=== PATIENT | female | born 1985 | race Caucasian/White ===

== ENCOUNTER 2016-06-12 18:21 | Inpatient (IN) | payer OTHER ==
[~2016-06-12] VITALS: Ht 165.1 cm; Wt 84.9 kg
[2016-06-12] MEDS ORDERED: PRENAT PO (21:50)
[2016-06-12 22:00] VITALS: TEMP 98
[2016-06-12 22:35] LABS: ADD SCAN DIFF NO
[2016-06-12 22:38] LABS: ABNORMAL IP MESSAGE 1; HEMATOCRIT 28.3 % (37.0-47.0); MEAN CORPUSCULAR HEMOGLOBIN 11.6 pg (29.0-33.0); MEAN CORPUSCULAR VOLUME 48.2 fl (82.0-101.0); PLATELET COUNT 485 10^3/UL (140-415); RED BLOOD COUNT 5.87 10^6/ul (4.20-5.40); RED CELL DISTRIBUTION WIDTH 28.5 % (11.5-14.5); WHITE BLOOD COUNT 12.1 10^3/ul (4.8-10.8)
[2016-06-12 22:51] LABS: HEMOGLOBIN 6.8 g/dl (12.0-16.0)
[2016-06-12 23:03] LABS: ALBUMIN 4.4 g/dl (3.3-4.9)
[2016-06-12 23:04] LABS: POTASSIUM 3.6 mmol/L (3.5-5.1)
[2016-06-12 23:06] LABS: ALBUMIN/GLOBULIN RATIO 1.22; BILIRUBIN,INDIRECT 0.5 mg/dl (0-1.1); BILIRUBIN,TOTAL 0.5 mg/dl (0.2-1.3); CREATININE 0.58 mg/dl (0.44-1.00)
[2016-06-12 23:07] LABS: CALCIUM 9.4 mg/dl (8.4-10.2)
--- NOTE | 2016-06-12 23:27 | ERA ---
ER Documentation Chief Complaint Date/Time DATE: 06/12/16 TIME: 23:26 Chief Complaint sent by pmd for lowhgb-6.5, 4 wks , denies vag bleeding HPI This is a 30-year-old female sent in by PMD for low hemoglobin of 6.5. Patient is 45 weeks . Denies vaginal bleeding. Denies any abdominal pain. Denies any other current complaints. Denies weakness or palpitations. ROS All systems reviewed and are negative except as per history of present illness. Medications Home Meds Reported Medications Multivit/Min/Fol Ac/Iron/Pren* ( S*) 1 Tab Tab, 1 TAB PO DAILY, TAB 06/12/16 Allergies Allergies: Coded Allergies: Penicillins (Verified Allergy, Unknown, 06/12/16) codeine (Verified Allergy, Unknown, 06/12/16) PMhx/Soc Medical and Surgical Hx: pt denies Medical Hx History of Surgery: No Anesthesia Reaction: No Hx Neurological Disorder: No Hx Cardiac Disorders: No Hx Psychiatric Problems: No Hx Miscellaneous Medical Probl: No Hx Alcohol Use: No Hx Substance Use: No Hx Tobacco Use: No Smoking Status: Current every day smoker Physical Exam Vitals Vital Signs Date Time Temp Pulse Resp B/P Pulse Ox O2 Delivery O2 Flow Rate FiO2 06/12/16 18:53 98.4 86 20 116/73 100 06/12/16 18:51 98.4 90 20 116/73 100 Physical Exam Const: [] Head: Atraumatic Eyes: Normal Conjunctiva ENT: Normal External Ears, Nose and Mouth. Neck: Full range of motion..~ No meningismus. Resp: Clear to auscultation bilaterally Cardio: Regular rate and rhythm, no murmurs Abd: Soft, non tender, non distended. Normal bowel sounds Skin: No petechiae or rashes Back: No midline or flank tenderness Ext: No cyanosis, or edema Neur: Awake and alert Psych: Normal Mood and Affect Result Diagram: 06/12/162224 Results 24 hrs Laboratory Tests Test 06/12/16 22:25 White Blood Count 12.110^3/ul Red Blood Count 5.8710^6/ul Hemoglobin 6.8g/dl Hematocrit 28.3% Mean Corpuscular Volume 48.2fl Mean Corpuscular Hemoglobin 11.6pg Mean Corpuscular Hemoglobin Concent 24.0g/dl Red Cell Distribution Width 28.5% Platelet Count 18448^3/UL Mean Platelet Volume fl Procedures/MDM Medical decision-makin-year-old female comes in essentially for iron deficiency anemia. Patient to be admitted to hospitalist. Dr. Schmidt consulted from OB. Departure Diagnosis: Primary Impression: Anemia Qualified Code: D50.9 - Iron deficiency anemia, unspecified iron deficiency anemia type Condition: Serious DAMON CHRIS Jun 12, 2016 23:27
[2016-06-13] VITALS: BP 110/69; PULSE 82; RESP 20
[2016-06-13 00:04] LABS: ADD UMIC NO; URINE BILIRUBIN (Dip) NEGATIVE (NEGATIVE); URINE BLOOD (Dip) NEGATIVE (NEGATIVE); URINE COLOR LT. YELLOW (YELLOW); URINE GLUCOSE (Dip) NEGATIVE (NEGATIVE); URINE KETONES (Dip) NEGATIVE (NEGATIVE); URINE LEUKOCYTE ESTERASE (Dip) NEGATIVE (NEGATIVE); URINE NITRITE (Dip) NEGATIVE (NEGATIVE); URINE TOTAL PROTEIN (Dip) NEGATIVE (NEGATIVE); URINE UROBILINOGEN (Dip) 0.2 E.U./dL (0.1-1.0)
--- NOTE | 2016-06-13 00:34 | RADRPT ---
PROCEDURE: ULTRASOUND OBSTETRICAL CLINICAL INDICATION: 30-year-old female with vaginal bleeding. TECHNIQUE: Multiple sonographic images of the pelvis were obtained. The images were reviewed on a PACS workstation. COMPARISON: None. FINDINGS: There is a single intrauterine gestation. The mean sac diameter is 0.98 cm. There is a gestational sac present. There is a pole present with a crown-rump length of 0.34 cm. This yields an gina mated gestational age of 5 weeks and 6 days. The estimated date of delivery is February 06, 2017. T here is no evidence for cardiac activity. There is no evidence for free fluid. The right ovary has a normal echotexture and measures 3.4 x 2.6 x 2.9 cm. The left ovary has a normal echotexture and me asures 3.0 x 1.9 x 2.3 cm. There is normal flow to the ovaries bilaterally. No adnexal masses are n oted. IMPRESSION: Single early intrauterine gestation of approximately 5 weeks 6 days without cardiac activity suspici ous for early failed . Clinical correlation and follow-up ultrasound at 1-2 weeks is pranay garnett. .David Cali MD, Date Time Electronically viewed and signed by .David Cali MD, on 06/13/2016 00:34 .M/
[2016-06-13 00:54] VITALS: Ht 165.1 cm; Wt 84.9 kg
[2016-06-13] MEDS ORDERED: ONDANSETRON 4 MG INJ IV PRN (01:30)
[2016-06-13 01:50] LABS: IRON 12 ug/dl (35-150)
[2016-06-13 01:59] LABS: TOTAL IRON BINDING CAPACITY 465 ug/dl (241-421)
[2016-06-13 02:15] LABS: EOSINOPHILS # 0.1 10^3/ul (0.0-0.5); LYMPHOCYTES # 3.1 10^3/ul (0.8-2.9); MONOCYTE # 0.7 10^3/ul (0.3-0.9); NEUTROPHIL # 8.1 10^3/ul (1.6-7.5); PLATELET ESTIMATE PLT APPEAR INCREASED
[2016-06-13 08:14] VITALS: BP 103/59; RESP 16
[2016-06-13 08:15] VITALS: BP_SYST 103; BP_SYST 115; BP_DIAS 54; BP_DIAS 59; RESP 16
--- NOTE | 2016-06-13 08:50 | HP ---
DATE OF ADMISSION: 06/12/2016 TIME SEEN: 2330 CHIEF COMPLAINT: Anemia and generalized weakness. HISTORY OF PRESENT ILLNESS: The patient is a 30-year-old female who is 6 weeks , with a his tory of anemia who was sent for anemia. Laboratory results from outside showed a decreased hemoglob in and was sent here for evaluation. She denied any vaginal bleeding, dark stool, bright red blood per rectum, or hematemesis. She stated that she was actually diagnosed with iron deficiency anemia when she was a teenager, she used to take iron supplement inconsistently. She stated her hemoglobin has been as low as 7, but she stated she has never received any blood transfusion. When she presen jennifer here to the ER today, her hemoglobin was 6.8, MCV was 48. Currently, she is receiving a blood t ransfusion. I actually did check her ferritin and the iron profile prior to blood transfusion which showed severe iron deficiency. While the patient was in the ER an obstetric ultrasound was done wh ich showed a single early intrauterine gestation of approximately 5 weeks 6 days without cardiac act ivity, suspicious for the failed . Dr. Schmidt from SERVICE TEAM LEADER was consulted by the ER physici an. REVIEW OF SYSTEMS: A 12-point review was performed, negative except as mentioned in the HPI. PAST MEDICAL HISTORY: As per HPI. PAST SURGICAL HISTORY: x1. SOCIAL HISTORY: Denied a history of tobacco, alcohol, or illicit drug use. ALLERGIES 1. PENICILLIN. 2. CODEINE. HOME MEDICATIONS: Multivitamins including and iron and folate. PHYSICAL EXAMINATION: VITAL SIGNS: Stable. GENERAL: The patient initially was sleepy, but arousable and answering questions appropriately, but was sleepy throughout history taking. HEENT: No obvious head deformity. Pupils are reactive to light. Extraocular muscles intact. CARDIOVASCULAR: Regular rate and rhythm. No extra sounds. LUNGS: Clear. ABDOMEN: Soft, nontender, normoactive bowel sounds. EXTREMITIES: No edema. NEUROLOGIC: There are no focal deficits. LABORATORY: Hemoglobin 6.8 with MCV of 48 and RDW of 28.5. WBC 12.1. Platelet count 485. INR is 12. TIBC 465, percent saturation 3, and ferritin 4.2. IMAGING: Obstetric ultrasound shows a single early intrauterine gestation of approximately 5 weeks and 6 days without cardiac activity, suspicious for early failed . IMPRESSION: 1. Severe iron deficiency anemia. 2. Generalized weakness/fatigue, secondary to above. 3. Suspicious early failed 4. Leukocytosis, likely stress-induced. PLAN: We are going to continue blood transfusion. This is going to be continued with her multivita min, iron supplement, and will give her an extra iron. Her suspected failed is going to b e addressed by SERVICE TEAM LEADER. Dr. Schmidt was consulted by the ER physician. Further workup and management per clinical course. Dictated By: DAMON TEAGUE/NTS Conf#: [id number] DID#: [id number]
[2016-06-13] MEDS: MULTIVIT/MIN/FOLATE/IRON/PREN TAB PO SCH (09:56)
[2016-06-13] MEDS ORDERED: HYDROCODONE/APAP (5/325) TAB PO PRN (10:00)
[2016-06-13] MEDS ORDERED: ACETAMINOPHEN 325 MG TAB PO PRN (10:00)
[2016-06-13] MEDS: SOD FERRIC GLUC COMPLX 125 MG in SOD CHLORIDE 0.9% 100 ML IVPB SCH ×2 (11:00→14:45)
--- NOTE | 2016-06-13 11:18 | PN ---
DATE: 06/13/2016 SUBJECTIVE: The patient presently getting blood transfusion. Denies any lower vaginal bleeding. OBJECTIVE VITAL SIGNS: Stable. GENERAL: Patient is sitting up in bed, no acute distress, answering questions. HEENT: Pupils equal, round, react to light. Extraocular muscles intact. NECK: Supple, no thyromegaly. LUNGS: Clear to auscultation bilaterally. CARDIOVASCULAR: S1, S2 heard. No rubs or gallops. ABDOMEN: Soft, nontender, nondistended. Normal bowel sounds. No rebound or guarding. MUSCULOSKELETAL: No lower extremity edema bilaterally. NEUROLOGIC: No focal deficits. LABORATORY DATA: Again, the iron levels are low at 3. TIBC is high at 465, percent saturation is l ow at 3. Iron levels were 12. Comprehensive metabolic panel is normal. CBC shows WBC 12.1 and a h emoglobin of 6.8. IMAGING: Again the obstetric ultrasound did show single early intrauterine gestation of approximate ly 5 weeks x 6 days. No cardiac activity. Unfortunately, suspicious for early failed . ASSESSMENT AND PLAN: A 30-year-old female coming in with severe anemia and generalized weakness. 1. Weakness secondary to severe anemia. She has got signs of microcytic anemia. Continue blood tra nsfusions. Will order for IV iron as well. Follow up CBC in the morning. 2. Suspicious early failed . This is based on the obstetric ultrasound results. Again oralia l follow up CUT OFF SAW OPERATOR PIPE BLANKS recommendations. The patient may need a follow up ultrasound, follow up their re commendations. 3. Leukocytosis, likely stress-induced. No signs of any fevers. Continue to monitor for now. 4. Gastrointestinal prophylaxis, PPI. 5. Deep venous thrombosis prophylaxis, SCDs. Dictated By: ALAN PRICE Conf#: [id number] DID#: [id number]
[2016-06-13 15:49] LABS: HEMATOCRIT 30.4 % (37.0-47.0); HEMOGLOBIN 8.2 g/dl (12.0-16.0)
--- NOTE | 2016-06-13 17:17 | CONS ---
Date/Time of Note Date/Time of Note DATE: 06/13/16 TIME: 17:02 Assessment/Plan Assessment/Plan Chief Complaint/Hosp Course 1. of 5 weeks and 1 day by LMP consistent with ultrasound in the hospital today Early IUP. Cardiac activity not yet visualized. No evidence of miscarriage or failed at this point Patient was reassured 2. Anemia, iron deficiency based on labs. Patient also reports tested positive for thalassemia. Hemoglobin evaluation ordered. Patient currently undergoing blood transfusion. She is hemodynamically stable. Follow-up and management of anemia by primary care team I discussed with the patient ultrasound finding consistent with early IUP. She was advised to have a follow-up after discharge from the hospital within 1-2 weeks with repeat ultrasound For evaluation for cardiac activity. SAB precaution was given. At this time patient will be signed off. Please reconsult if there is any other question or concern. Problems: Consultation Date/Type/Reason Admit Date/Time Jun 12, 2016 at 23:45 Date of Consultation: Jun 13, 2016 Type of Consultation: DEBONE SUPERVISOR, OB Reason for Consultation 06/13/2016 Hx of Present Illness I was consulted to see this 30-year-old pleasant female who was sent from her primary care office after she had a visit today to emergency room due to severe anemia for blood transfusion. Per patient she had missed cycle and for that reason she went to her primary care office and was noted to be . Patient reports has history of anemia. Patient LMP is May 08, 2016. is currently 5 weeks and 1 days by her last menstrual period which consistent with her ultrasound today. was unplanned. Patient currently denies any symptoms of shortness of breath or chest pain dizziness or lightheadedness. She had a long history of anemia since teenage years. She also reports that during she was tested for thalassemia and was positive. She denies any family history of known thalassemia. Patient had been taking iron, inconsistently. She was admitted for blood transfusion to medicine service. DEBONE SUPERVISOR was consulted due to 5 weeks plus noted in ultrasound with echo and no cardiac activity. Patient denies any vaginal bleeding, leaking of fluid, contraction, pain, black tarry stool, blood in the stool, abdominal pain or any other symptoms. Patient reports her cycle has been regular every 30 days and last about 4-6 days with heavy bleeding. She change her tampon 2-3 hours during the heaviest day. She had not been using any control. She denies any prior history of abnormal Pap. Last Pap smear was in 2015 and was normal. Subjective hx not possible: other (Patient does not have any complaint) Constitutional: no complaints Eyes: no complaints ENT: no complaints Respiratory: no complaints Cardiovascular: no complaints Gastrointestinal: no complaints Genitourinary: no complaints Musculoskeletal: no complaints Skin: no complaints Neurologic: no complaints Endocrine: no complaints Lymphatic: no complaints Psychological: no complaints Immunologic: no complaints Past Medical History History of anemia. Was tested positive for thalassemia during . Denies any known family history of thalassemia [employer] history: LMP May 08, 2016 [place] by LMP 5 weeks and 1 day Cycles regular every 30 days last about 4-6 days with heavy flow. Denies any prior history of abnormal Pap smear. Last Pap smear was 2015 and was normal Does not use any contraception 002. Had a history of a spontaneous twin Denies any other gynecologic problem Past Surgical History section 1 for twin Social History Leukemia in her brother, at age 2 Diabetes: Maternal grandfather Hepatitis B in mother due to IV drug usage Patient reports that she tested negative for hepatitis B Alcohol Use: rarely Smoking Status: Never smoker Drug Use: none Exam/Review of Systems Vital Signs Vitals Vital Signs Date Time Temp Pulse Resp B/P Pulse Ox O2 Delivery O2 Flow Rate FiO2 06/13/16 08:15 98.4 55 16 115/54 95 06/13/16 00:00 Room Air Intake and Output 06/12/16 06/12/16 06/13/16 15:00 23:00 07:00 Intake Total 590 ml Balance 590 ml Exam Constitutional: alert, oriented, well developed Psych: nl mood/affect, no complaints Head: atraumatic, normocephalic Eyes: EOMI, nl conjunctiva, nl lids ENMT: nl external ears & nose, nl lips & teeth, nl nasal mucosa & septum Neck: non-tender, supple Respiratory: clear to auscultation, normal air movement Cardiovascular: nl pulses, regular rate and rhythm Gastrointestinal: nl liver, spleen, non-tender, other (Pelvic examination: External genitalia within normal limits. Speculum examination: Cervix looks normal. No abnormal vaginal bleeding or discharge. Bimanual examination: No cervical motion tenderness: No uterine tenderness: No fullness or tenderness in adnexa. Uterus about 8-9 cm size), soft Genitourinary - Female: nl adnexae Musculoskeletal: nl extremities to inspection Extremities: normal pulses Neurological: MANAGER OF INTERNAL AUDIT II-XII intact Skin: nl turgor Lymph: nl lymph nodes Results Hematology - 72 Hrs Test 06/12/16 22:25 06/13/16 15:30 White Blood Count 12.110^3/ul (4.8-10.8) H Red Blood Count 5.8710^6/ul (4.20-5.40) H Hemoglobin 6.8g/dl (12.0-16.0) *L 8.2g/dl (12.0-16.0) #L Hematocrit 28.3% (37.0-47.0) L 30.4% (37.0-47.0) L Mean Corpuscular Volume 48.2fl (82.0-101.0) L Mean Corpuscular Hemoglobin 11.6pg (29.0-33.0) L Mean Corpuscular Hemoglobin Concent 24.0g/dl (32.0-37.0) L Red Cell Distribution Width 28.5% (11.5-14.5) H Platelet Count 21626^3/UL (140-415) H Mean Platelet Volume fl (7.4-10.4) Neutrophils % 67.0% (39.0-77.0) Lymphocytes % 26.0% (15.0-51.0) Monocytes % 6.0% (0.0-11.0) Eosinophils % 1.0% (0.0-7.0) Neutrophils # 8.110^3/ul (1.6-7.5) H Lymphocytes # 3.110^3/ul (0.8-2.9) H Monocytes # 0.710^3/ul (0.3-0.9) Eosinophils # 0.110^3/ul (0.0-0.5) Platelet Estimate PLT APPEAR INCREASED Chemistry Test 06/12/16 22:25 06/13/16 15:30 Sodium Level 138mmol/L (135-144) Potassium Level 3.6mmol/L (3.5-5.1) Chloride Level 102mmol/L (97-110) Carbon Dioxide Level 23mmol/L (21-31) Anion Gap 17 (8-16) H Blood Urea Nitrogen 12mg/dl (7-20) Creatinine 0.58mg/dl (0.44-1.00) Glucose Level 87mg/dl (70-220) Calcium Level 9.4mg/dl (8.4-10.2) Iron Level 12ug/dl (35-150) L Total Iron Binding Capacity 465ug/dl (241-421) H Percent Iron Saturation 3% SAT (22-52) L Ferritin 4.2ng/ml (6.2-137.0) L Total Bilirubin 0.5mg/dl (0.2-1.3) Direct Bilirubin 0.00mg/dl (0.00-0.20) Indirect Bilirubin 0.5mg/dl (0-1.1) Aspartate Amino Transf (AST/SGOT) 22IU/L (15-46) Alanine Aminotransferase (ALT/SGPT) 22IU/L (13-69) Alkaline Phosphatase 57IU/L (42-121) Total Protein 8.0g/dl (6.1-8.1) Albumin 4.4g/dl (3.3-4.9) Globulin 3.60g/dl (1.3-3.2) H Albumin/Globulin Ratio 1.22 Beta HCG, Quantitative 9724.8mIU/ml Result Diagram: 06/13/16 1530 06/12/16 2225 Results 24 hrs Laboratory Tests Test 06/12/16 22:20 06/12/16 22:25 06/13/16 15:30 Urine Color LT. YELLOW Urine Clarity CLEAR Urine pH 6.0 Urine Specific [place] 1.020 Urine Ketones NEGATIVE Urine Nitrite NEGATIVE Urine Bilirubin NEGATIVE Urine Urobilinogen 0.2 E.U./dL Urine Leukocyte Esterase NEGATIVE Urine Hemoglobin NEGATIVE Urine Glucose NEGATIVE Urine Total Protein NEGATIVE White Blood Count 12.1 H Red Blood Count 5.87 H Hemoglobin 6.8 *L 8.2 #L Hematocrit 28.3 L 30.4 L Mean Corpuscular Volume 48.2 L Mean Corpuscular Hemoglobin 11.6 L Mean Corpuscular Hemoglobin Concent 24.0 L Red Cell Distribution Width 28.5 H Platelet Count 485 H Mean Platelet Volume Neutrophils % 67.0 Lymphocytes % 26.0 Monocytes % 6.0 Eosinophils % 1.0 Neutrophils # 8.1 H Lymphocytes # 3.1 H Monocytes # 0.7 Eosinophils # 0.1 Platelet Estimate PLT APPEAR INCREASED Sodium Level 138 Potassium Level 3.6 Chloride Level 102 Carbon Dioxide Level 23 Anion Gap 17 H Blood Urea Nitrogen 12 Creatinine 0.58 Glucose Level 87 Calcium Level 9.4 Iron Level 12 L Total Iron Binding Capacity 465 H Percent Iron Saturation 3 L Ferritin 4.2 L Total Bilirubin 0.5 Direct Bilirubin 0.00 Indirect Bilirubin 0.5 Aspartate Amino Transf (AST/SGOT) 22 Alanine Aminotransferase (ALT/SGPT) 22 Alkaline Phosphatase 57 Total Protein 8.0 Albumin 4.4 Globulin 3.60 H Albumin/Globulin Ratio 1.22 Beta HCG, Quantitative 9724.8 Medications Medications Current Medications Ondansetron HCl (Zofran Inj) 4 mg Q6H PRN IV NAUSEA AND/OR VOMITING; Start at 01:30 Prenat Multivit/ [place]/Iron/Folic Ac ( S) 1 tab DAILY PO Last administered on 06/13/16 09:56; Admin Dose 1 TAB; Start 06/13/16 at 09:00 Acetaminophen (Tylenol Tab) 650 mg Q6H PRN PO PAIN AND OR ELEVATED TEMP; Start 06/13/16 at 10:00 Pantoprazole (Protonix Tab) 40 mg DAILY@06 PO ; Start 06/14/16 at 06:00 Acetaminophen/ Hydrocodone Bitart 1 tab 1 tab Q6H PRN PO PAIN LEVEL 4-7; Start 06/13/16 at 10:00 Ferric Sodium Gluconate Complex/ Sodium Chloride (Ferrlecit/NS) 110 ml @ 110 mls/hr Q24H IVPB Last administered on 06/13/16 14:45; Admin Dose 110 MLS/HR; Start 06/13/16 at 11:00; Stop 06/17/16 at 11:59 Procedures Procedures PROCEDURE: ULTRASOUND OBSTETRICAL CLINICAL INDICATION: 30-year-old female with vaginal bleeding. TECHNIQUE: Multiple sonographic images of the pelvis were obtained. The images were reviewed on a PACS workstation. COMPARISON: None. FINDINGS: There is a single intrauterine gestation. The mean sac diameter is 0.98 cm. There is a gestational sac present. There is a pole present with a crown- rump length of 0.34 cm. This yields an estimated gestational age of 5 weeks and 6 days. The estimated date of delivery is February 06, 2017. There is no evidence for cardiac activity. There is no evidence for free fluid. The right ovary has a normal echotexture and measures 3.4 x 2.6 x 2.9 cm. The left ovary has a normal echotexture and measures 3.0 x 1.9 x 2.3 cm. There is normal flow to the ovaries bilaterally. No adnexal masses are noted. IMPRESSION: Single early intrauterine gestation of approximately 5 weeks 6 days without cardiac activity suspicious for early failed . Clinical correlation and follow-up ultrasound at 1-2 weeks is suggested. HEDY SAENZ MD Jun 13, 2016 17:12
[2016-06-13 19:51] VITALS: BP 111/72; RESP 20
[2016-06-14] MEDS ORDERED: PANTOPRAZOLE (EC) 40 MG TAB PO SCH (06:00)
[2016-06-14 06:16] LABS: ADD SCAN DIFF NO
[2016-06-14 06:34] LABS: ABNORMAL IP MESSAGE 1; HEMATOCRIT 32.2 % (37.0-47.0); HEMOGLOBIN 8.5 g/dl (12.0-16.0); MEAN CORPUSCULAR HEMOGLOBIN 13.9 pg (29.0-33.0); MEAN CORPUSCULAR HGB CONC 26.4 g/dl (32.0-37.0); MEAN CORPUSCULAR VOLUME 52.8 fl (82.0-101.0); PLATELET COUNT 445 10^3/UL (140-415); WHITE BLOOD COUNT 9.3 10^3/ul (4.8-10.8)
[2016-06-14 06:54] LABS: ALBUMIN 3.8 g/dl (3.3-4.9); ALBUMIN/GLOBULIN RATIO 1.11; BILIRUBIN,INDIRECT 0.6 mg/dl (0-1.1); BILIRUBIN,TOTAL 0.6 mg/dl (0.2-1.3); CREATININE 0.58 mg/dl (0.44-1.00); POTASSIUM 3.9 mmol/L (3.5-5.1); TOTAL PROTEIN 7.2 g/dl (6.1-8.1)
[2016-06-14 07:02] LABS: RED CELL DISTRIBUTION WIDTH 34.5 % (11.5-14.5)
[2016-06-14 08:10] VITALS: BP 102/65; RESP 18
[2016-06-14] MEDS: MULTIVIT/MIN/FOLATE/IRON/PREN TAB PO SCH (08:54)
--- NOTE | 2016-06-14 09:27 | PDOCDIS ---
Discharge Instructions CONDITION Patient Condition: Stable HOME CARE INSTRUCTIONS: Diet Instructions: Regular ACTIVITY: Activity Restrictions: Slowly Increase Activity FOLLOW UP/APPOINTMENTS Appointments Please take your medications, and see your doctor in the clinic in 1 week. ALAN FERRER Jun 14, 2016 09:27
[2016-06-14 10:02] LABS: ANISOCYTOSIS 2+; HYPOCHROMASIA 1+
--- NOTE | 2016-06-14 10:10 | DS ---
DATE OF ADMISSION: 06/12/2016 DATE OF DISCHARGE: 06/14/2016 HOSPITAL COURSE: This is a 30-year-old female originally admitted on 06/13/2016, being discharged o n 06/14/2016. The patient came in with severe anemia and generalized weakness. She was found with a hemoglobin of 6.8, an MCV of 48. She was admitted to med/surg floor, given PRBC transfusion, also IV iron given that she had low iron levels as well and high TIBC. There was suspicion of microcytic anemia, possibly secondary to combination of iron deficiency anemia and also thalassemia. She was seen by FRUIT GRADER doctor because there was a concern on the obstetric ultrasound. Initially it shows in trauterine gestation of 5 weeks and 6 days with no cardiac activity; however, FRUIT GRADER team came and s aw the patient and determined that even though there is no cardiac activity, there is no evidence of any miscarriage or any failed at this point, and the patient was reassured about that. S he is to follow up with the FRUIT GRADER team as an outpatient in next 1 to 2 weeks for further evaluation of cardiac activity. There is no signs of any vaginal bleeding or pain or discharge and because her hemoglobin is stable today and she has gotten IV iron as well, she will be discharged home today in improved condition. She will be sent with vitamins to take daily and to follow up with shanique primary care doctor and FRUIT GRADER team in the clinic in the next 1 to 2 weeks. FINAL DIAGNOSES: 1. Generalized weakness and anemia secondary to microcytic anemia, possibly secondary to iron defic iency anemia and thalassemia, now improved after IV iron and PRBC transfusion. 2. Intrauterine gestation at 5 weeks and 6 days by last menstrual period. Time spent discharging patient 40 minutes. Dictated By: ALAN PRICE Conf#: [id number] DID#: [id number]
[2016-06-14] MEDS: SOD FERRIC GLUC COMPLX 125 MG in SOD CHLORIDE 0.9% 100 ML IVPB SCH (10:58)
[2016-06-15 11:40] LABS: HEMATOCRIT 32.9 % (35.0-45.0); HEMOGLOBIN 8.4 g/dL (11.7-15.5); MCV 55.5 fL (80.0-100.0); RED BLOOD CELL COUNT 5.93 Million/uL (3.80-5.10)
[2016-06-19 08:39] LABS: HEMOGLOBIN A 98.3 % (>96.0); HEMOGLOBIN A2 (QUANT) 1.7 % (1.8-3.5); HEMOGLOBIN F <1.0 % (<2.0)
== END 2016-06-14 14:05 | disposition home or self-care (01) | DRG 781 ==
LOC: E/R 18:21 → MS2 23:45
PROVIDERS: ADMIT Internal Medicine; ATTEND Internal Medicine
PROC: 30233N1 Transfusion of Nonautologous Red Blood Cells into Peripheral Vein, Percutaneous Approach (ICD-10-PCS; principal; 2016-06-13)
DX: O99.011 Anemia complicating pregnancy, first trimester (principal); D72.829 Elevated white blood cell count, unspecified; R53.1 Weakness; Z3A.01 Less than 8 weeks gestation of pregnancy
CPT/HCPCS: 36415; 36430; 76801; 76817; 80053; 81003; 82728; 83020; 83540; 83615; 84144; 84702; 85014; 85018; 85025; 86850; 86900; 86901; 86920; J2916; P9016